=== PATIENT | male | born 1950 | race African-American/Black ===

== ENCOUNTER → 2019-12-04 09:48 | Outpatient (CLI) | payer OTHER | END | disposition home or self-care (01) | LOC: D.HCCECHO 09:48 | PROVIDERS: ATTEND Internal Medicine Cardiovascular Disease | DX: I10 Essential (primary) hypertension (principal); I20.9 Angina pectoris, unspecified ==

== ENCOUNTER 2020-01-27 07:29 | Outpatient (CLI) | payer OTHER ==
[~2020-01-27] VITALS: Ht 177.8 cm; Wt 84.5 kg
--- NOTE | ~2020-01-27 | HEMODYNAMI ---
PATIENT:ABRAHAM TUCKER MEDICAL RECORD: [id number] : 54 LOCATION:[facility] ADMISSION DATE: 01/27/20 Generatedon:01/27/20209:23 Patient name: ABRAHAM TUCKER Patient #: [id number] SSN: DO B: 1950 Date of study: 01/27/2020 Page: Of Hemodynamic Procedure Report Patient Data Patient Demographics Procedure consent was obtained First Name: ABRAHAM Gender: Male Last Name: GARRETT : 1950 Patient #: [id number] Age: 69 year(s) Race: Black Additional ID: [id number] Contact details [address]: [address] [place] [address] State: [place] City: [place] Zip code: [address] Past Medical History Allergies: No known allergies Admission Admission Data Admission Date: 01/27/2020 Admission Time: 7:29 Arrival Date: 01/27/2020 Arrival Time: 0:00 Height (in.): 70 BSA: 2.03 (m2) Height (cm.): 177.8 BMI: 26.83 (kg/m2) Weight (lbs.): 187 Weight (kg.): 84.82 Lab Results Lab Result Date: 01/27/2020 Lab Result Time: 0:00 Biochemistry Name Units Result Min Max BUN mg/dl 16 --(---*)-- 7 18 Creatinine mg/dl 1.1 --(--*-)-- 0.6 1.3 eGFR ml/min 85.69351 -*(----)-- 90 120 AM CBC Name Units Result Min Max Hemoglobin g/dl 13.2 -*(----)-- 13.5 17.5 Procedure Procedure Types Cath Procedure Diagnostic Procedure [facility] w/Coronaries Sedation Charges Moderate Sedation up to 15 minutes Procedure Description Procedure Date Procedure Date: 01/27/2020 Procedure Start Time: 9:10 Procedure End Time: 9:21 Procedure Staff Name Function Joshua Copeland MD Performing Physician Ese Chen RT Monitor Jammie Funk RT Scrub Jeanne Quevedo RN Nurse Indication Syncope Procedure Data Cath Procedure Fluoroscopy Diagnostic fluoroscopy Total fluoroscopy Time: 2.3 time: 2.3 min min Diagnostic fluoroscopy Total fluoroscopy dose: 468 dose: 468 mGy mGy Contrast Material Contrast Material Type Amount (ml) Isovue 300 54 Entry Location Entry Primary Successful Side Size Upsize Upsize Entry Closure Millard ccessful Closure Location (Fr) 1 (Fr) 2 (Fr) Remarks Device Remarks Radial Right 6 Fr Mechanical artery Short Compression Estimated blood loss: 5 ml Diagnostic catheters Device Type Used For End Catheter Placement DIAGNOSTIC Gordon 110cm Ventriculography 5Fr catheter ([id number]) Procedure Medications Medication Administration Route Dosage 0.9% NaCl I.V. 100 ml/hr Oxygen etCO2 Nasal cannula 2 l/min Lidocaine 2% added to field 20 Heparin Flush Bag added to field 2 bags (1000units/500ml NS) Radial Cocktail added to field 1 syringe (Verapamil 2mg/Nitro 400mcg/Heparin 1500units) Versed I.V. 1 mg Fentanyl I.V. 25 mcg Hemodynamics Rest BSA: 2.03 (m2) HGB: 13.2 (g/dl) O2 Consumption: Estimated: 236.22 (ml/min) O2 Co nsumption indexed: Estimated:116.36 (ml/min/m) Heart Rate: 70 (bpm) Pressure Samples Time Site Value (mmHg) Purpose Heart Use Rate(bpm) 9:13 LV 100/3,3 Snapshot 115 9:13 LV 124/-5,10 Snapshot 74 Gradients Valve Time Site Site Mean SEP/DFP Peak To Heart Use 1 2 (mmHg) (sec/min) Peak Rate (mmHg) (bpm) Aortic 9:13 LV AO 66 Snapshots Pre Cath Intra NCS Post Cath Vital Signs Time Heart Resp SPO2 etCO2 NIBP (mmHg) Rhythm Pain Sedation Rate (ipm) (%) (mmHg) Status Level (bpm) 8:53:16 68 15 100 40.4 152/85(127) NSR 0 (11) 10(A) , No pain 8:57:38 66 14 100 16.4 137/74(110) NSR 0 (11) 10(A) , No pain 9:01:58 64 13 100 38.1 129/77(99) NSR 0 (11) 10(A) , No pain 9:06:14 64 13 99 37.4 128/72(101) NSR 0 (11) 10(A) , No pain 9:10:32 62 11 100 32.2 125/72(93) NSR 0 (11) 9(A) , No pain 9:14:48 66 13 99 35.1 116/66(88) NSR 0 (11) 10(A) , No pain 9:19:02 63 15 99 35.2 128/68(102) NSR 0 (11) 10(A) , No pain Medications Time Medication Route Dose Verified Delivered Reason Notes Ef fectiveness by by 8:58:09 0.9% NaCl I.V. 100 Joshua Jeanne used for ml/hr Min Quevedo acls specialist 8:58:15 Oxygen etCO2 2 l/min Joshua Jeanne used for Nasal Min Quevedo procedure cannula RN 8:58:20 Lidocaine 2% added 20ml Joshua Joshua for local to vial Min Copeland MD anesthetic field 8:58:24 Heparin Flush added 2 bags Joshua Joshua used for Bag to Min Copeland MD procedure (1000units/500ml field NS) 8:58:30 Radial Cocktail added 1 Joshua Joshua used for (Verapamil to syringe Min Copeland MD procedure 2mg/Nitro field 400mcg/Heparin 1500units) 8:58:46 Versed I.V. 1 mg Joshua Jeanne for Min Quevedo sedation RN 8:58:51 Fentanyl I.V. 25 mcg Joshua Jeanne for Min Quevedo sedation welder manufacture Log Time Note 8:37:28 Indication : Syncope 8:37:38 Procedure Status Elective Heart Cath (OP). 8:37:42 Jeanne Quevedo RN sent for patient. Start room use. 8:37:46 Time tracking: Regular hours (M-F 7:00 - 5:00) 8:37:54 Plan of Care:Hemodynamics will remain stable., Cardiac rhythm will remain stable., Comfort level will be maintained., Respiratory function will remain adequate., Patient/ family verbilizes understanding of procedure., Procedure tolerated without complication., Recovers from procedure without complications.. 8:38:03 Arrival Date: 01/27/2020 12:00:00 AM 8:38:26 Patient Height : 70 inches 8:38:31 Patient Weight : 187 lbs 8:51:58 Patient received from Pre/Post Procedure Room to CCL 1 Alert and oriented. Tansferred to table in Supine position. 8:52:01 Signed procedure consent form obtained from patient. 8:52:03 Warm blankets applied, and leighann hugger turned on for patient comfort. 8:52:03 Correct patient and procedure confirmed by team. 8:52:04 ECG and BP/O2 sat monitors applied to patient. 8:52:05 Vital chart was started 8:52:06 Baseline sample Acquired. 8:52:10 Rhythm: sinus rhythm 8:52:13 Full Disclosure recording started 8:52:31 H&P Date Dictated: 01/19/2020 Within 30 days and on chart., H&P Addendum completed by physician on day of procedure. (MUST COMPLETE FOR ALL OUTPATIENTS). 8:52:37 Pre-procedure instructions explained to patient. 8:52:40 Family unavailable. 8:52:42 Patient NPO since Midnight. 8:52:48 Patient allergic to No known allergies 8:52:51 Is the patient allergic to Iodine/contrast media? No. 8:52:53 Was the patient premedicated? Yes 8:52:55 Is patient on blood thinner?No 8:52:59 Patient diabetic? Yes. 8:53:04 If diabetic: On Metformin? Yes 8:53:07 If on Metformin: Last Dose? 01/24/2020 8:53:16 Snore? Yes 8:53:17 Sleep apnea? Yes 8:53:29 IV patent on arrival in left forearm with 0.9% NaCl at KVO. 8:53:33 Lab results completed and on chart. 8:54:11 Stress Test: yes; abnormal INFERIOR,LATERAL,APICAL 8:54:21 Right Radial & Right Groin area was prepped with chlora-prep and draped in sterile fashion 8:54:27 Physician arrived 8:54:27 --------ALL STOP TIME OUT------ 8:54:48 Final Timeout: patient, procedure, and site verified with staff and physician. All members of the team are in agreement. 8:54:50 Right Radial & Right Groin site verified by team. 8:54:55 Fire Safety Assessment: A--An alcohol-based skin anteseptic being used preoperatively., C--Open oxygen or nitrous oxide is being used., D--An ESU, laser, or fiber-optic light is being used. 8:57:56 Physical assessment completed. ASA score P 2 - A patient with mild systemic disease as per Joshua Copeland MD. 8:58:09 0.9% NaCl 100 ml/hr I.V. was administered by Jeanne Quevedo RN; used for procedure; Verbal order read back and verified. 8:58:15 Oxygen 2 l/min etCO2 Nasal cannula was administered by Jeanne Quevedo RN; used for procedure; Verbal order read back and verified. 8:58:20 Lidocaine 2% 20ml vial added to field was administered by Joshua Copeland MD; for local anesthetic; Verbal order read back and verified. 8:58:24 Heparin Flush Bag (1000units/500ml NS) 2 bags added to field was administered by Joshua Copeland MD; used for procedure; Verbal order read back and verified. 8:58:30 Radial Cocktail (Verapamil 2mg/Nitro 400mcg/Heparin 1500units) 1 syringe added to field was administered by Joshua Copeland MD; used for procedure; Verbal order read back and verified. 8:58:46 Versed 1 mg I.V. was administered by Jaenne Quevedo RN; for sedation; Verbal order read back and verified. 8:58:51 Fentanyl 25 mcg I.V. was administered by Jeanne Quevedo RN; for sedation; Verbal order read back and verified. 8:59:21 2) 60-89 Mildly reduced kidney function, and other findings (as for stage 1) point to kidney disease. 8:59:50 Maximum allowable contrast dose (3.7 X eGFR X 0.75)238 ml. 8:59:55 Sedation plan: IV Moderate Sedation Medication:Versed, Fentanyl 9:00:37 Lab Result : Hemoglobin 13.2 g/dl 9:00:37 Lab Result : eGFR AM 85.60063 ml/min 9:00:37 Lab Result : BUN 16 mg/dl 9:00:37 Lab Result : Creatinine 1.1 mg/dl 9:00:46 Zero performed for pressure channel P1 9:00:58 Use device set Radial Dx or PCI 9:00:59 ACIST Syringe (84124) opened to sterile field. 9:01:00 Medline Cath Pack ([id number]) opened to sterile field. 9:01:01 Bag Decanter (2002S) opened to sterile field. 9:01:01 ACIST Hand Control (83478) opened to sterile field. 9:01:02 ACIST Manifold (42031) opened to sterile field. 9:01:04 MBrace Wrist Support ([id number]) opened to sterile field. 9:01:06 NEEDLE Cook 21G 4cm Radial ([id number]) opened to sterile field. 9:01:08 SHEATH 6FR RAIN (0711737) opened to sterile field. 9:01:11 EMERALD Guide Wire (281-330) opened to sterile field. 9:09:30 Procedure started. 9:10:02 Local anesthetic to right radial artery with Lidocaine 2% by Joshua Copeland MD.INITIAL ACCESS ONLY 9:11:03 A 6 Fr Short sheath was inserted into the Right Radial artery 9:11:09 J wire advanced. 9:11:32 A DIAGNOSTIC Gordon 110cm 5Fr catheter (068903) was advanced over the wire and used for Ventriculography. 9:12:33 LV angiography performed. 9:13:30 EF : 45 % 9:14:14 LCA angiography performed. 9:16:32 RCA angiography performed. 9:17:38 ZEPHYR REGULAR TR BAND (876118) opened to sterile field. 9:17:44 Catheter removed. 9:17:54 Sheath removed intact; hemostasis achieved with Mechanical Compression to the Right Radial artery. 9:17:58 Procedure ended.(Physican Out) 9:18:34 Fluoroscopy time 02.30 minutes. 9:18:38 Fluoroscopy dose: 468 mGy 9:18:38 Flurop Dose total: 468 9:18:44 Dose Area Product 19364 mGy/cm. 9:18:55 Contrast amount:Isovue 300 54ml. 9:18:57 Maximum allowable dose exceeded? No. 9:19:03 [place] band inflated with 12cc of air. 9:19:04 Insertion/operative site no bleeding no hematoma. 9:19:08 Post Procedure Pulses reassessed and unchanged 9:19:13 Post-procedure physical assessment completed. ASA score P 2 - A patient with mild systemic disease as per Joshua Copeland MD. 9:19:17 Post procedure rhythm: sinus rhythm 9:19:20 Estimated blood loss: 5 ml 9:19:24 Post procedure instruction explained to patient.Patient verbalizes understanding. 9:19:42 Procedure type changed to Cath procedure, Diagnostic procedure, LHC, LHC w/Coronaries, Sedation Charges, Moderate Sedation up to 15 minutes 9:19:43 Procedure and supply charges have been captured, reviewed, submitted and are correct. 9:21:28 Procedure and supply charges have been captured, reviewed, submitted and are correct. 9:21:36 Vital chart was stopped 9:21:38 [facility] Findings: mild to moderate CAD (<70%) 9:21:42 Report given to Pre/Post Procedure Room. 9:21:46 Patient transfered to Pre/Post Procedure Room with Stretcher. 9:21:49 Procedure ended. 9:21:49 Full Disclosure recording stopped 9:21:53 End room use (Document Last) Device Usage Item Name Manufacture Quantity Catalog Hospital Part Current Minima l Lot# / Number Charge Number Stock Stock Serial# Code ACIST Acist 1 [id number] [id number] [id number] 20 Syringe Medical (36121) Systems Inc Medline Medline 1 [id number] 58677 951384 5 Cath Pack ([id number]) Bag Microtek 1 2001S 267539 38170 869543 5 Decanter Medical Inc. () ACIST Hand Acist 1 59686 745546 005412 447195 5 Control Medical (04074) Systems Inc ACIST Acist 1 94615 393490 632097 369096 5 Manifold Medical (20274) Systems Inc MBrace Advanced 1 140-0250-00 305211 46826 629089 5 Wrist Vascular Support Dynamics ([id number]) NEEDLE Generaytor Medical 1 [id number] 110726 570674 921715 5 21G 4cm Radial (I45911) SHEATH 6FR Cardinal 1 [id number] 467473 9909003 183808 5 [facility] (4588684) EMERALD Cardinal 1 030-192 259677 458747 208893 5 Guide Wire Health (900-482) DIAGNOSTIC Terumo 1 40-0492 890217 929623 558376 5 Gordon 110cm 5Fr catheter (454177) ZEPHYR Cardinal 1 252292 205148 2007541 191118 5 REGULAR TR Health BAND (835052) Signature Audit Bryant Stage Time Signature Unsigned Intra-Procedure 01/27/2020 Ese Chen 9:21:28 AM RT(R) Intra-Procedure 01/27/2020 Jeanne Quevedo 9:22:22 AM RN Intra-Procedure 01/27/2020 Joshua Copeland MD 9:23:00 AM Intra-Procedure 01/27/2020 Joshua Copeland MD 9:23:36 AM [place] [id number] [place] [address]
[2020-01-27] MEDS ORDERED: LIPITOR40 MG PO (07:46)
[2020-01-27] MEDS ORDERED: NORVASC10 MG PO (07:46)
[2020-01-27] MEDS ORDERED: LOTENSIN40 MG PO (07:46)
[2020-01-27] MEDS ORDERED: FLUTICASONE PRO16 GM NASAL (07:47)
[2020-01-27] MEDS ORDERED: NEURONTIN 300300 MG PO (07:47)
[2020-01-27] MEDS ORDERED: MOBIC7.5 MG PO (07:48)
[2020-01-27] MEDS ORDERED: GLUCOPHAGE1000 MG PO (07:49)
[2020-01-27] MEDS ORDERED: ALDACTONE25 MG PO (07:50)
[2020-01-27] MEDS ORDERED: FLOMAX0.4 MG PO (07:50)
[2020-01-27] MEDS ORDERED: BASAGLAR K100 UNIT/1 SC (07:53)
[2020-01-27] MEDS ORDERED: NOVOLOG100 UNIT/1 SC (07:53)
[2020-01-27 08:22] LABS: BASOPHILS 0.2 % (0-2); EOSINOPHILS 2.8 % (0-7); HEMOGLOBIN 13.2 g/dL (13.5-17.5); IMMATURE GRANULOCYTES 0.2 % (0-5); LYMPHOCYTES 29.1 % (15-50); MCH 23.7 pg (26.0-34.0); MCHC 32.2 g/dL (31.0-37.0); MCV 73.5 fL (80.0-100.0); MEAN PLATELET VOLUME 10.7 fL (7.4-10.4); MONOCYTES 10.5 % (2-11); NEUTROPHILS 57.2 % (40-80); PLATELET COUNT 208 10x3/uL (130-400); RBC 5.58 10x6/uL (4.20-6.10); RDW 14.8 % (11.5-14.5)
[2020-01-27 08:24] VITALS: BP 140/79; Ht 177.8 cm; Wt 84.5 kg
[2020-01-27 08:46] LABS: ANION GAP 11.5 mmol/L (8-16); CARBON DIOXIDE 25.5 mmol/L (21.0-32.0); CHOL - HDL RATIO 1.8 ratio (2.3-4.9); CREATININE - SERUM 1.1 mg/dL (0.6-1.3); LDL-HDL RATIO 0.7 ratio (1.5-3.5)
--- NOTE | 2020-01-27 09:30 | NUR ---
REC'D TO ROOM 12 VIA STRETCHER FROM AUTO JOB ESTIMATOR. MONITORS ESTAB. PT DROWSY. SEE NISSAN SALES CONSULTANT. ALARMS ON AND C/L IN REACH.
[2020-01-27] MEDS ORDERED: BAYER CHEWABLE81 MG PO (09:31)
--- NOTE | 2020-01-27 09:45 | NUR ---
R WRIST SITE C/D/I, NO S/S BLEEDING OR HEMATOMA. HAND WARM WITH BRISK CAP REFILL NOTED. PT RESTING QUIETLY. VSS.
--- NOTE | 2020-01-27 10:15 | NUR ---
DR. CABRERA IN TO SEE PT. R WRIST SITE C/D/I. I UPDATED DAUGHTER PER PT REQUEST - D/C INSTRUCTIONS REVIEWED AND PLAN FOR PT D/C AT 12:00.
--- NOTE | 2020-01-27 10:30 | NUR ---
R WRIST SITE C/D/I. 2CC AIR REMOVED FROM Z BAND, NO S/S BLEEDING OR HEMATOMA. PT ATE ALL OF SANDWICH, DENIES PAIN OR NEEDS. ALARMS ON AND C/L IN REACH.
--- NOTE | 2020-01-27 10:40 | NUR ---
TOTAL 5CC AIR REMOVED FROM Z BAND, NO S/S BLEEDING OR HEMATOMA. VSS. WILL CONT CLOSE MONITORING.
--- NOTE | 2020-01-27 11:00 | NUR ---
7CC AIR REMOVED FROM Z BAND, NO S/S BLEEDING OR HEMATOMA.
--- NOTE | 2020-01-27 11:15 | NUR ---
ALL AIR REMOVED FROM Z BAND, NO S/S BLEEDING OR HEMATOMA. PT DENIES NEEDS. C/L IN REACH.
--- NOTE | 2020-01-27 11:41 | NUR ---
R WRIST SITE C/D/I. ZBAND REMOVED AND DSG APPLIED, PIV D/C'D INTACT - DSG APPLIED. PT ALLOWED UP TO GET DRESSED AND VOIDED 400 CC URINE.
--- NOTE | 2020-01-27 12:00 | NUR ---
ALL DISCHARGE INSTRUCTIONS WITH PT AND . PT DISCHARGED TO PRIVATE VEHICLE WITH ALL BELONGINGS AND PAPERWORK.
== END 2020-01-27 12:00 | disposition home or self-care (01) ==
LOC: D.CATH 07:29
PROVIDERS: ATTEND Internal Medicine Cardiovascular Disease
DX: I25.119 Atherosclerotic heart disease of native coronary artery with unspecified angina pectoris (principal); R94.30 Abnormal result of cardiovascular function study, unspecified